=== PATIENT | male | born 1965 | race Caucasian/White ===

== ENCOUNTER 2023-08-05 19:59 | Inpatient (IN) ==
[2023-08-05] MEDS ORDERED: IOPAMIDOL 100 ML BOTTLE IV ONE (20:00)
[2023-08-05 20:39] LABS: Basophils # (Auto) 0.02 K/mcL (0.00-0.30); Basophils % (Auto) 0.1 % (0.0-2.0); Eosinophils # (Auto) 0 K/mcL (0.00-0.70); Eosinophils % (Auto) 0 % (0.0-7.0); Hemoglobin 8.2 g/dL (13.7-17.5); Lymphocytes # (Auto) 0.77 K/mcL (1.50-4.80); Mean Cell Volume 89.7 fL (80.0-100.0); Mean Corpuscular HGB Conc 31.5 g/dL (31.0-36.0); Monocytes # (Auto) 1.26 K/mcL (0.10-0.90); Monocytes % (Auto) 6.5 % (1.0-12.0); Neutrophils % (Auto) 88.3 % (38.0-78.0); Platelet Count 293 K/mcL (140-440); Red Cell Distribution Width 17.2 % (11.5-14.5); WBC 19.5 K/mcL (4.5-11.0)
[2023-08-05] MEDS: fentaNYL 100 MCG/2 ML VIAL IV ONE (20:56)
[2023-08-05 21:01] LABS: ALT/SGPT 38 U/L (<40); AST/SGOT 188 U/L (<40); Albumin/Globulin Ratio 0.8 (1.0-2.3); Alkaline Phosphatase 386 U/L (39-117); Bilirubin,Total 0.8 mg/dL (0.1-1.0); Blood Urea Nitrogen 58 mg/dL (6-20); Calcium 9.2 mg/dL (8.6-10.4); Carbon Dioxide 25 mmol/L (22-30); Chloride 92 mmol/L (96-108); Glomerular Filtration Rate 43; Glucose 110 mg/dL (70-105)
[2023-08-05] MEDS: cefTRIAXone 2 GM in DEXTROSE 5% IN WATER 50 ML IV ONE (22:53)
[2023-08-05 23:09] LABS: Appearance,Urine Clear (Clear); Bilirubin,Urine Negative (Negative); Color,Urine Yellow; Culture Indicated,Urine No; Glucose,Urine (UA) Negative (Negative); Ketones,Urine Negative (Negative); Leukocyte Esterase,Urine Negative /uL (Negative); Mucus,Urine Mod /hpf; Nitrate,Urine Negative (Negative); PH,Urine 5.5 (5.0-9.0); Protein,Urine Negative (Negative); Specific Gravity,Urine 1.015 (1.000-1.035); Urine Blood Negative ery/mcL (Negative); Urine Hyaline Cast 7 /lph (0-2); Urine RBC 0 /hpf (0-3); Urine Squamous Epithelial Cell 0 /hpf (0-4); Urine WBC 1 /hpf (0-4); Urobilinogen,Urine Normal
[2023-08-05] MEDS: AZITHROMYCIN 500 MG in DEXTROSE 5% IN WATER 250 ML IV ONE (23:30)
[2023-08-06] MEDS ORDERED: ONDANSETRON 4 MG/2 ML VIAL IV PRN ×2 (00:16→07:51)
[2023-08-06] MEDS: cefTRIAXone 1 GM VIAL IV SCH ×2 (01:03→15:01)
[2023-08-06] MEDS: 0.9 % SODIUM CHLORIDE 1,000 ML IV SCH (01:09)
[2023-08-06] MEDS: IPRATROPIUM/ALBUTEROL 3 ML AMPUL.NEB NEB PRN (01:32)
[2023-08-06] MEDS: IPRATROPIUM/ALBUTEROL 3 ML AMPUL.NEB NEB ONE (01:32)
[2023-08-06] MEDS: AZITHROMYCIN 500 MG in DEXTROSE 5% IN WATER 250 ML IV SCH ×2 (01:45→14:18)
[2023-08-06] MEDS: LORazepam 1 MG TABLET PO PRN (02:09)
[2023-08-06] MEDS: LORazepam 1 MG TABLET ONE (02:09)
[2023-08-06 04:41] LABS: POC Calcium, Ionized 1.17 (1.16-1.32); POC Creatinine 2.2 (0.6-1.2); POC Potassium 5.4 (3.3-5.1)
[2023-08-06 04:51] LABS: Basophils # (Auto) 0.04 K/mcL (0.00-0.30); Basophils % (Auto) 0.2 % (0.0-2.0); Eosinophils # (Auto) 0 K/mcL (0.00-0.70); Eosinophils % (Auto) 0 % (0.0-7.0); Hematocrit 27.6 % (40.1-51.0); Hemoglobin 8.5 g/dL (13.7-17.5); Lymphocytes # (Auto) 1.46 K/mcL (1.50-4.80); Lymphocytes % (Auto) 5.8 % (15.5-49.0); Mean Cell Volume 93.6 fL (80.0-100.0); Mean Corpuscular HGB Conc 30.8 g/dL (31.0-36.0); Mean Platelet Volume 10.2 fL (8.8-12.5); Monocytes # (Auto) 2.05 K/mcL (0.10-0.90); Monocytes % (Auto) 8.2 % (1.0-12.0); Neutrophils % (Auto) 83.3 % (38.0-78.0); Platelet Count 315 K/mcL (140-440); RBC 2.95 M/mcL (4.63-6.08); Red Cell Distribution Width 17.1 % (11.5-14.5); WBC 25.1 K/mcL (4.5-11.0)
[2023-08-06 05:12] LABS: ALT/SGPT 39 U/L (<40); AST/SGOT 189 U/L (<40); Albumin 2.9 gm/dL (3.2-5.2); Albumin/Globulin Ratio 0.7 (1.0-2.3); Alkaline Phosphatase 380 U/L (39-117); Bilirubin,Total 0.6 mg/dL (0.1-1.0); Blood Urea Nitrogen 63 mg/dL (6-20); Calcium 9.2 mg/dL (8.6-10.4); Carbon Dioxide 24 mmol/L (22-30); Chloride 93 mmol/L (96-108); Globulin 4.1 gm/dL (2.2-3.7); Glomerular Filtration Rate 38; Glucose 145 mg/dL (70-105)
[2023-08-06 05:32] LABS: Amphetamine Screen,Urine None detected; Barbiturate Screen,Urine None detected; Benzodiazepines Screen,Urine None detected; Cannabinoid Screen,Urine Suspect Positive; Cocaine Screen,Urine None detected; Opiate Screen,Urine None detected; Oxycodone, Urine Screen None detected; Phencyclidine Screen,Urine None detected
[2023-08-06] MEDS ORDERED: SENNOSIDES 1 TABLET PO PRN (07:51)
[2023-08-06] MEDS: HALOPERIDOL LACTATE 5 MG/ML VIAL IV PRN (08:39)
[2023-08-06] MEDS: HALOPERIDOL LACTATE 5 MG/ML VIAL ONE (08:42)
[2023-08-06] MEDS ORDERED: DOCUSATE SODIUM 100 MG CAPSULE PO SCH (09:00)
[2023-08-06] MEDS: 0.9 % SODIUM CHLORIDE 10 ML SYRINGE IV SCH ×2 (09:08→14:30)
[2023-08-06] MEDS: FUROSEMIDE 40 MG/4 ML VIAL IV SCH ×2 (10:30→15:01)
[2023-08-06] MEDS: APIXABAN 5 MG TABLET PO SCH (11:19)
[2023-08-06] MEDS: DILTIAZEM 240 MG CAP.XL.24H PO SCH (11:19)
[2023-08-06] MEDS: GABAPENTIN 300 MG CAPSULE PO SCH (11:19)
[2023-08-06] MEDS: CHLORTHALIDONE 25 MG TABLET PO SCH (11:22)
[2023-08-06] MEDS: DOCUSATE SODIUM 100 MG CAPSULE PO SCH (11:22)
[2023-08-06] MEDS: ALBUMIN HUMAN 12.5 GM/50 ML VIAL IV SCH (14:18)
[2023-08-06] MEDS ORDERED: NALOXONE 2 MG/2 ML SYRINGE IV ONE (15:37)
[2023-08-06] MEDS ORDERED: FLUMAZENIL 0.1 MG/ML ML IV ONE (15:37)
[2023-08-06] MEDS: LORazepam 2 MG/ML VIAL IV PRN (22:50)
[2023-08-06] MEDS: SENNOSIDES 1 TABLET PO SCH (22:52)
[2023-08-06] MEDS: ATORVASTATIN 40 MG TABLET PO SCH (22:52)
[2023-08-07] MEDS: DEXMEDETOMIDINE 400 MCG in PREMIX 1 BAG IV SCH (00:24)
[2023-08-07] MEDS: DEXMEDETOMIDINE 100 ML IV ONE (00:42)
[2023-08-07 06:24] LABS: Hematocrit 24.3 % (40.1-51.0); Hemoglobin 7.4 g/dL (13.7-17.5); Mean Corpuscular HGB Conc 30.5 g/dL (31.0-36.0); Platelet Count 243 K/mcL (140-440); RBC 2.53 M/mcL (4.63-6.08); Red Cell Distribution Width 17.4 % (11.5-14.5); WBC 16.5 K/mcL (4.5-11.0)
[2023-08-07 06:30] LABS: ALT/SGPT 35 U/L (<40); AST/SGOT 184 U/L (<40); Albumin 2.8 gm/dL (3.2-5.2); Albumin/Globulin Ratio 0.8 (1.0-2.3); Alkaline Phosphatase 334 U/L (39-117); Bilirubin,Direct 0.3 mg/dL (<0.3); Bilirubin,Total 0.5 mg/dL (0.1-1.0); Blood Urea Nitrogen 78 mg/dL (6-20); Calcium 8.7 mg/dL (8.6-10.4); Carbon Dioxide 27 mmol/L (22-30); Chloride 97 mmol/L (96-108); Globulin 3.3 gm/dL (2.2-3.7); Glomerular Filtration Rate 35; Glucose 94 mg/dL (70-105); Lactate Dehydrogenase 439 U/L (135-225); Triglycerides 123 mg/dL (<150); Uric Acid 12.6 mg/dL (2.5-8.0)
[2023-08-07 06:38] LABS: Anisocytosis 1+ (None Seen); Hypochromasia 1+ (None Seen); Lymphocytes % 4 % (15-49); Platelet Estimate NORMAL (Normal); RBC Morphology ABNORMAL (Normal); Reactive Lymphocytes 1 % (0-2); Segmented Neutrophils % 95 % (38-78)
[2023-08-07 08:37] LABS: ABG Methemoglobin 0.2 % (0.4-1.5); Total Hemoglobin 8.1 gm/Dl (13.5-16.5); VBG Base Excess -3 (-2-3); VBG HCO3 24.9 mmol/L (24.0-28.0); VBG Oxygen Saturation 75.3 % (40.0-70.0); VBG PCO2 59.2 mmHg (41.0-51.0); VBG PH 7.24 U (7.32-7.42); VBG PO2 50.2 mmHg (25.0-40.0); VBG Total CO2 26.7 mmol/L (25.0-29.0)
[2023-08-07] MEDS: PANTOPRAZOLE 40 MG VIAL IV SCH (09:08)
[2023-08-07] MEDS: SEVELAMER 800 MG TABLET PO SCH (09:09)
[2023-08-07] MEDS: 0.9 % SODIUM CHLORIDE 500 ML IV SCH (09:10)
[2023-08-07] MEDS: BUDESONIDE 0.5 MG/2 ML AMPUL.NEB NEB SCH (09:13)
[2023-08-07] MEDS: methylPREDNISolone SOD SUCC 125 MG/2 ML VIAL IV SCH (11:11)
[2023-08-07] MEDS: NICOTINE 14 MG PATCH TOPICAL SCH (11:58)
[2023-08-07] MEDS: NICOTINE 21 MG PATCH TOPICAL SCH (11:58)
[2023-08-07] MEDS: IPRATROPIUM/ALBUTEROL 3 ML AMPUL.NEB NEB SCH (12:25)
[2023-08-07] MEDS: QUEtiapine 25 MG TABLET PO SCH (20:18)
[2023-08-07] MEDS: methylPREDNISolone SOD SUCC 40 MG/ML VIAL IV ONE (20:18)
[2023-08-07] MEDS: methylPREDNISolone SOD SUCC 40 MG/ML VIAL IV SCH (20:19)
[2023-08-08 06:27] LABS: ALT/SGPT 44 U/L (<40); AST/SGOT 246 U/L (<40); Albumin 2.9 gm/dL (3.2-5.2); Albumin/Globulin Ratio 0.9 (1.0-2.3); Alkaline Phosphatase 399 U/L (39-117); Bilirubin,Direct 0.3 mg/dL (<0.3); Bilirubin,Total 0.4 mg/dL (0.1-1.0); Blood Urea Nitrogen 82 mg/dL (6-20); Calcium 8.5 mg/dL (8.6-10.4); Carbon Dioxide 27 mmol/L (22-30); Chloride 97 mmol/L (96-108); Globulin 3.3 gm/dL (2.2-3.7); Glomerular Filtration Rate 35; Glucose 152 mg/dL (70-105); Lactate Dehydrogenase 659 U/L (135-225); Phosphorous 5.3 mg/dL (2.5-4.5); Triglycerides 88 mg/dL (<150); Uric Acid 12.5 mg/dL (2.5-8.0)
[2023-08-08 07:59] LABS: Basophils # (Auto) 0.01 K/mcL (0.00-0.30); Basophils % (Auto) 0.1 % (0.0-2.0); Eosinophils # (Auto) 0 K/mcL (0.00-0.70); Eosinophils % (Auto) 0 % (0.0-7.0); Hematocrit 22.5 % (40.1-51.0); Lymphocytes # (Auto) 0.34 K/mcL (1.50-4.80); Lymphocytes % (Auto) 3.4 % (15.5-49.0); Mean Cell Volume 89.3 fL (80.0-100.0); Mean Corpuscular HGB Conc 31.1 g/dL (31.0-36.0); Mean Platelet Volume 9.9 fL (8.8-12.5); Monocytes # (Auto) 0.18 K/mcL (0.10-0.90); Monocytes % (Auto) 1.8 % (1.0-12.0); Neutrophils % (Auto) 93.3 % (38.0-78.0); Platelet Count 223 K/mcL (140-440); RBC 2.52 M/mcL (4.63-6.08); Red Cell Distribution Width 17.8 % (11.5-14.5); WBC 9.9 K/mcL (4.5-11.0)
[2023-08-08] MEDS: 0.9 % SODIUM CHLORIDE 500 ML IV SCH (08:44)
[2023-08-08] MEDS: SEVELAMER 800 MG TABLET PO SCH (08:48)
[2023-08-08] MEDS: 0.9 % SODIUM CHLORIDE 1,000 ML IV SCH (09:10)
[2023-08-08] MEDS: 0.9 % SODIUM CHLORIDE 250 ML IV SCH (10:40)
[2023-08-08 11:15] LABS: Hepatitis A Antibody IgM Non-Reactive (Non-Reactive); Hepatitis B Surface Antigen Negative (Negative)
[2023-08-09] MEDS: ACETAMINOPHEN 325 MG TABLET PO PRN (02:43)
[2023-08-09 06:13] LABS: ALT/SGPT 45 U/L (<40); AST/SGOT 261 U/L (<40); Albumin 3.1 gm/dL (3.2-5.2); Albumin/Globulin Ratio 0.9 (1.0-2.3); Alkaline Phosphatase 410 U/L (39-117); Bilirubin,Direct 0.3 mg/dL (<0.3); Bilirubin,Total 0.5 mg/dL (0.1-1.0); Blood Urea Nitrogen 76 mg/dL (6-20); Calcium 8.7 mg/dL (8.6-10.4); Carbon Dioxide 28 mmol/L (22-30); Chloride 98 mmol/L (96-108); Globulin 3.3 gm/dL (2.2-3.7); Glomerular Filtration Rate 40; Glucose 167 mg/dL (70-105); Lactate Dehydrogenase 769 U/L (135-225); Phosphorous 4.1 mg/dL (2.5-4.5); Triglycerides 76 mg/dL (<150); Uric Acid 10.7 mg/dL (2.5-8.0)
[2023-08-09 07:56] LABS: Basophils # (Auto) 0.01 K/mcL (0.00-0.30); Basophils % (Auto) 0.1 % (0.0-2.0); Eosinophils # (Auto) 0 K/mcL (0.00-0.70); Eosinophils % (Auto) 0 % (0.0-7.0); Hematocrit 26.8 % (40.1-51.0); Hemoglobin 8.2 g/dL (13.7-17.5); Lymphocytes # (Auto) 0.25 K/mcL (1.50-4.80); Mean Cell Volume 89.6 fL (80.0-100.0); Mean Corpuscular HGB Conc 30.6 g/dL (31.0-36.0); Mean Platelet Volume 10.1 fL (8.8-12.5); Monocytes # (Auto) 0.57 K/mcL (0.10-0.90); Monocytes % (Auto) 4.6 % (1.0-12.0); Neutrophils % (Auto) 92.3 % (38.0-78.0); Platelet Count 201 K/mcL (140-440); RBC 2.99 M/mcL (4.63-6.08); Red Cell Distribution Width 18.4 % (11.5-14.5); WBC 12.5 K/mcL (4.5-11.0)
[2023-08-09] MEDS: PANTOPRAZOLE 80 MG in 0.9 % SODIUM CHLORIDE 100 ML IV SCH (09:09)
[2023-08-09] MEDS: 0.9 % SODIUM CHLORIDE 250 ML IV SCH (09:10)
[2023-08-09] MEDS: guaiFENesin 600 MG TAB.SR.12H PO SCH (09:27)
[2023-08-09] MEDS ORDERED: KETAMINE 50 MG/ML ML IV PRN (12:40)
[2023-08-09] MEDS ORDERED: PROPOFOL 200 MG/20 ML VIAL IV SCH (12:45)
[2023-08-09] MEDS: MIDAZOLAM 2 MG/2 ML VIAL IV SCH (13:21)
[2023-08-09] MEDS: predniSONE 20 MG TABLET PO SCH (16:56)
[2023-08-09] MEDS: traMADol 50 MG TABLET PO PRN (21:19)
[2023-08-09] MEDS: 0.9 % SODIUM CHLORIDE 10 ML SYRINGE IV SCH (21:23)
[2023-08-10 07:05] LABS: Basophils # (Auto) 0.01 K/mcL (0.00-0.30); Basophils % (Auto) 0.1 % (0.0-2.0); Eosinophils # (Auto) 0 K/mcL (0.00-0.70); Eosinophils % (Auto) 0 % (0.0-7.0); Hematocrit 26.8 % (40.1-51.0); Hemoglobin 8.2 g/dL (13.7-17.5); Lymphocytes # (Auto) 0.24 K/mcL (1.50-4.80); Lymphocytes % (Auto) 2.2 % (15.5-49.0); Mean Cell Volume 92.1 fL (80.0-100.0); Mean Corpuscular HGB Conc 30.6 g/dL (31.0-36.0); Mean Platelet Volume 9.9 fL (8.8-12.5); Monocytes # (Auto) 0.43 K/mcL (0.10-0.90); Monocytes % (Auto) 3.9 % (1.0-12.0); Neutrophils % (Auto) 93.2 % (38.0-78.0); Platelet Count 178 K/mcL (140-440); RBC 2.91 M/mcL (4.63-6.08); Red Cell Distribution Width 18.1 % (11.5-14.5); WBC 11.1 K/mcL (4.5-11.0)
[2023-08-10 07:44] LABS: ALT/SGPT 39 U/L (<40); AST/SGOT 172 U/L (<40); Albumin 2.9 gm/dL (3.2-5.2); Albumin/Globulin Ratio 0.9 (1.0-2.3); Alkaline Phosphatase 356 U/L (39-117); Bilirubin,Direct 0.3 mg/dL (<0.3); Bilirubin,Total 0.5 mg/dL (0.1-1.0); Blood Urea Nitrogen 71 mg/dL (6-20); Calcium 8.8 mg/dL (8.6-10.4); Carbon Dioxide 28 mmol/L (22-30); Chloride 103 mmol/L (96-108); Globulin 3.1 gm/dL (2.2-3.7); Glomerular Filtration Rate 46; Glucose 145 mg/dL (70-105); Lactate Dehydrogenase 554 U/L (135-225); Phosphorous 3.4 mg/dL (2.5-4.5); Triglycerides 71 mg/dL (<150); Uric Acid 9.4 mg/dL (2.5-8.0)
[2023-08-10] MEDS ORDERED: KETAMINE 50 MG/ML ML IV PRN (08:04)
[2023-08-10] MEDS: MIDAZOLAM 2 MG/2 ML VIAL IV SCH (09:41)
[2023-08-10] MEDS: PROPOFOL 200 MG/20 ML VIAL IV SCH (09:41)
[2023-08-10] MEDS: predniSONE 20 MG TABLET PO SCH (11:16)
[2023-08-11 06:45] LABS: Basophils # (Auto) 0.01 K/mcL (0.00-0.30); Basophils % (Auto) 0.1 % (0.0-2.0); Eosinophils # (Auto) 0 K/mcL (0.00-0.70); Eosinophils % (Auto) 0 % (0.0-7.0); Hematocrit 27.4 % (40.1-51.0); Hemoglobin 8.4 g/dL (13.7-17.5); Mean Cell Volume 93.2 fL (80.0-100.0); Mean Corpuscular HGB Conc 30.7 g/dL (31.0-36.0); Monocytes # (Auto) 0.94 K/mcL (0.10-0.90); Monocytes % (Auto) 7.1 % (1.0-12.0); Neutrophils % (Auto) 89.1 % (38.0-78.0); Platelet Count 193 K/mcL (140-440); RBC 2.94 M/mcL (4.63-6.08); Red Cell Distribution Width 18.3 % (11.5-14.5); WBC 13.3 K/mcL (4.5-11.0)
[2023-08-11 06:54] LABS: ALT/SGPT 45 U/L (<40); AST/SGOT 144 U/L (<40); Albumin/Globulin Ratio 1.1 (1.0-2.3); Alkaline Phosphatase 362 U/L (39-117); Bilirubin,Total 0.5 mg/dL (0.1-1.0); Blood Urea Nitrogen 69 mg/dL (6-20); Calcium 8.7 mg/dL (8.6-10.4); Carbon Dioxide 28 mmol/L (22-30); Chloride 103 mmol/L (96-108); Globulin 2.8 gm/dL (2.2-3.7); Glomerular Filtration Rate 46; Glucose 129 mg/dL (70-105)
[2023-08-11] MEDS: PERMETHRIN 1% TOPICAL ONE (13:38)
[2023-08-11] MEDS: traZODone HCL 50 MG TABLET PO PRN (21:14)
[2023-08-11] MEDS: guaiFENesin/DEXTROMETHORPHAN 5ML UD CUP PO PRN (22:59)
[2023-08-12 06:04] LABS: Basophils # (Auto) 0.01 K/mcL (0.00-0.30); Basophils % (Auto) 0.1 % (0.0-2.0); Eosinophils # (Auto) 0 K/mcL (0.00-0.70); Eosinophils % (Auto) 0 % (0.0-7.0); Hematocrit 29.6 % (40.1-51.0); Hemoglobin 8.9 g/dL (13.7-17.5); Mean Cell Volume 93.1 fL (80.0-100.0); Mean Corpuscular HGB Conc 30.1 g/dL (31.0-36.0); Mean Platelet Volume 10.3 fL (8.8-12.5); Monocytes # (Auto) 0.83 K/mcL (0.10-0.90); Monocytes % (Auto) 5.6 % (1.0-12.0); Neutrophils % (Auto) 91.6 % (38.0-78.0); Platelet Count 204 K/mcL (140-440); RBC 3.18 M/mcL (4.63-6.08); Red Cell Distribution Width 18.1 % (11.5-14.5); WBC 14.7 K/mcL (4.5-11.0)
[2023-08-12 06:16] LABS: ALT/SGPT 73 U/L (<40); AST/SGOT 151 U/L (<40); Albumin 3.1 gm/dL (3.2-5.2); Albumin/Globulin Ratio 1.1 (1.0-2.3); Alkaline Phosphatase 404 U/L (39-117); Bilirubin,Total 0.5 mg/dL (0.1-1.0); Blood Urea Nitrogen 61 mg/dL (6-20); Calcium 8.8 mg/dL (8.6-10.4); Carbon Dioxide 28 mmol/L (22-30); Chloride 105 mmol/L (96-108); Globulin 2.9 gm/dL (2.2-3.7); Glomerular Filtration Rate 50; Glucose 138 mg/dL (70-105)
[2023-08-12] MEDS: PANTOPRAZOLE 40 MG PACKET PO SCH (08:45)
[2023-08-12] MEDS: HALOPERIDOL LACTATE 5 MG/ML VIAL IV PRN (20:52)
[2023-08-13 06:18] LABS: Basophils # (Auto) 0 K/mcL (0.00-0.30); Basophils % (Auto) 0 % (0.0-2.0); Eosinophils # (Auto) 0 K/mcL (0.00-0.70); Eosinophils % (Auto) 0 % (0.0-7.0); Hematocrit 29.1 % (40.1-51.0); Hemoglobin 8.8 g/dL (13.7-17.5); Lymphocytes # (Auto) 0.44 K/mcL (1.50-4.80); Lymphocytes % (Auto) 3.2 % (15.5-49.0); Mean Cell Volume 94.2 fL (80.0-100.0); Mean Corpuscular HGB Conc 30.2 g/dL (31.0-36.0); Mean Platelet Volume 10.7 fL (8.8-12.5); Monocytes # (Auto) 0.98 K/mcL (0.10-0.90); Monocytes % (Auto) 7.1 % (1.0-12.0); Neutrophils % (Auto) 88.8 % (38.0-78.0); Platelet Count 194 K/mcL (140-440); RBC 3.09 M/mcL (4.63-6.08); WBC 13.7 K/mcL (4.5-11.0)
[2023-08-13 06:27] LABS: ALT/SGPT 67 U/L (<40); AST/SGOT 113 U/L (<40); Albumin/Globulin Ratio 1.1 (1.0-2.3); Alkaline Phosphatase 375 U/L (39-117); Bilirubin,Total 0.4 mg/dL (0.1-1.0); Blood Urea Nitrogen 49 mg/dL (6-20); Calcium 8.7 mg/dL (8.6-10.4); Carbon Dioxide 31 mmol/L (22-30); Chloride 103 mmol/L (96-108); Globulin 2.8 gm/dL (2.2-3.7); Glomerular Filtration Rate 59; Glucose 211 mg/dL (70-105)
[2023-08-13] MEDS: HYDROcodone/APAP 10/325MG TABLET PO PRN (19:53)
[2023-08-13] MEDS: HYDROcodone/APAP 10/325MG TABLET PO ONE (20:56)
[2023-08-14 06:32] LABS: ALT/SGPT 71 U/L (<40); AST/SGOT 109 U/L (<40); Albumin 3.2 gm/dL (3.2-5.2); Albumin/Globulin Ratio 1.1 (1.0-2.3); Alkaline Phosphatase 412 U/L (39-117); Bilirubin,Total 0.6 mg/dL (0.1-1.0); Blood Urea Nitrogen 43 mg/dL (6-20); Carbon Dioxide 29 mmol/L (22-30); Chloride 102 mmol/L (96-108); Glomerular Filtration Rate 59; Glucose 155 mg/dL (70-105)
[2023-08-14 06:44] LABS: Basophils # (Auto) 0.01 K/mcL (0.00-0.30); Basophils % (Auto) 0.1 % (0.0-2.0); Eosinophils # (Auto) 0 K/mcL (0.00-0.70); Eosinophils % (Auto) 0 % (0.0-7.0); Hematocrit 30.1 % (40.1-51.0); Lymphocytes # (Auto) 0.44 K/mcL (1.50-4.80); Lymphocytes % (Auto) 2.4 % (15.5-49.0); Mean Cell Volume 94.1 fL (80.0-100.0); Mean Corpuscular HGB Conc 29.9 g/dL (31.0-36.0); Mean Platelet Volume 10.6 fL (8.8-12.5); Monocytes % (Auto) 7.5 % (1.0-12.0); Neutrophils % (Auto) 89.3 % (38.0-78.0); Platelet Count 238 K/mcL (140-440); WBC 18.7 K/mcL (4.5-11.0)
[2023-08-14] MEDS: FUROSEMIDE 20 MG TABLET PO SCH (15:27)
[2023-08-14] MEDS: HYDROcodone/APAP 10/325MG TABLET PO PRN (18:22)
[2023-08-14] MEDS: OLANZapine 5 MG TABLET PO PRN (21:18)
[2023-08-15] MEDS: HEPARIN SODIUM,PORCINE/PF 500 UNIT/5 ML SYRINGE IV ONE (06:33)
[2023-08-15 06:45] LABS: Basophils # (Auto) 0.01 K/mcL (0.00-0.30); Basophils % (Auto) 0.1 % (0.0-2.0); Eosinophils # (Auto) 0 K/mcL (0.00-0.70); Eosinophils % (Auto) 0 % (0.0-7.0); Hematocrit 29.1 % (40.1-51.0); Hemoglobin 8.6 g/dL (13.7-17.5); Lymphocytes # (Auto) 0.39 K/mcL (1.50-4.80); Mean Cell Volume 94.5 fL (80.0-100.0); Mean Corpuscular HGB Conc 29.6 g/dL (31.0-36.0); Mean Platelet Volume 10.3 fL (8.8-12.5); Monocytes # (Auto) 1.13 K/mcL (0.10-0.90); Monocytes % (Auto) 8.7 % (1.0-12.0); Neutrophils % (Auto) 87.3 % (38.0-78.0); Platelet Count 202 K/mcL (140-440); RBC 3.08 M/mcL (4.63-6.08); Red Cell Distribution Width 17.8 % (11.5-14.5); WBC 12.9 K/mcL (4.5-11.0)
[2023-08-15 07:25] LABS: ALT/SGPT 88 U/L (<40); AST/SGOT 121 U/L (<40); Albumin 3.1 gm/dL (3.2-5.2); Albumin/Globulin Ratio 1.1 (1.0-2.3); Alkaline Phosphatase 466 U/L (39-117); Bilirubin,Total 0.5 mg/dL (0.1-1.0); Blood Urea Nitrogen 43 mg/dL (6-20); Calcium 8.9 mg/dL (8.6-10.4); Carbon Dioxide 32 mmol/L (22-30); Chloride 102 mmol/L (96-108); Globulin 2.8 gm/dL (2.2-3.7); Glomerular Filtration Rate 65; Glucose 137 mg/dL (70-105)
[2023-08-15] MEDS: LACTULOSE 20 GM/30 ML ORAL.SOL PO PRN (09:28)
[2023-08-15] MEDS: FUROSEMIDE 20 MG TABLET PO SCH (13:47)
[2023-08-15] MEDS ORDERED: methylPREDNISolone SOD SUCC 125 MG/2 ML VIAL IV SCH (14:00)
[2023-08-15] MEDS: methylPREDNISolone SOD SUCC 40 MG/ML VIAL IV SCH (14:48)
[2023-08-16 08:41] LABS: ALT/SGPT 128 U/L (<40); AST/SGOT 136 U/L (<40); Albumin 3.1 gm/dL (3.2-5.2); Albumin/Globulin Ratio 1.1 (1.0-2.3); Alkaline Phosphatase 607 U/L (39-117); Bilirubin,Direct 0.3 mg/dL (<0.3); Bilirubin,Total 0.4 mg/dL (0.1-1.0); Blood Urea Nitrogen 44 mg/dL (6-20); Calcium 8.9 mg/dL (8.6-10.4); Carbon Dioxide 33 mmol/L (22-30); Chloride 100 mmol/L (96-108); Globulin 2.7 gm/dL (2.2-3.7); Glomerular Filtration Rate 59; Glucose 149 mg/dL (70-105); Lactate Dehydrogenase 369 U/L (135-225); Phosphorous 3.4 mg/dL (2.5-4.5); Triglycerides 61 mg/dL (<150); Uric Acid 7.2 mg/dL (2.5-8.0)
[2023-08-16] MEDS: FUROSEMIDE 40 MG TABLET PO SCH (08:53)
[2023-08-16] MEDS: APIXABAN 2.5 MG TABLET PO SCH (08:53)
[2023-08-17 06:10] LABS: Basophils # (Auto) 0.01 K/mcL (0.00-0.30); Basophils % (Auto) 0.1 % (0.0-2.0); Eosinophils # (Auto) 0 K/mcL (0.00-0.70); Eosinophils % (Auto) 0 % (0.0-7.0); Hematocrit 30.8 % (40.1-51.0); Hemoglobin 9.2 g/dL (13.7-17.5); Lymphocytes # (Auto) 0.45 K/mcL (1.50-4.80); Mean Cell Volume 93.1 fL (80.0-100.0); Mean Corpuscular HGB Conc 29.9 g/dL (31.0-36.0); Mean Platelet Volume 10.7 fL (8.8-12.5); Monocytes # (Auto) 1.45 K/mcL (0.10-0.90); Monocytes % (Auto) 9.5 % (1.0-12.0); Neutrophils % (Auto) 86.9 % (38.0-78.0); Platelet Count 258 K/mcL (140-440); RBC 3.31 M/mcL (4.63-6.08); Red Cell Distribution Width 18.1 % (11.5-14.5); WBC 15.2 K/mcL (4.5-11.0)
[2023-08-17 06:18] LABS: ALT/SGPT 120 U/L (<40); AST/SGOT 127 U/L (<40); Albumin 3.4 gm/dL (3.2-5.2); Albumin/Globulin Ratio 1.3 (1.0-2.3); Alkaline Phosphatase 602 U/L (39-117); Bilirubin,Direct 0.3 mg/dL (<0.3); Bilirubin,Total 0.5 mg/dL (0.1-1.0); Blood Urea Nitrogen 42 mg/dL (6-20); Calcium 8.9 mg/dL (8.6-10.4); Carbon Dioxide 33 mmol/L (22-30); Chloride 96 mmol/L (96-108); Globulin 2.7 gm/dL (2.2-3.7); Glomerular Filtration Rate 54; Glucose 236 mg/dL (70-105); Lactate Dehydrogenase 490 U/L (135-225); Phosphorous 2.4 mg/dL (2.5-4.5); Triglycerides 61 mg/dL (<150); Uric Acid 7.1 mg/dL (2.5-8.0)
[2023-08-17] MEDS: predniSONE 20 MG TABLET PO SCH (07:53)
[2023-08-17] MEDS: ALBUMIN HUMAN 12.5 GM/50 ML VIAL IV ONE (09:07)
[2023-08-17 09:17] LABS: Band Neutrophils % 2 % (0-10); Lymphocytes % 3 % (15-49); Monocytes % (Manual) 6 % (1-12); Platelet Estimate NORMAL (Normal); RBC Morphology NORMAL (Normal); Reactive Lymphocytes 1 % (0-2); Segmented Neutrophils % 88 % (38-78)
[2023-08-17 09:57] LABS: Total Protein,Peritoneal Fluid 0.4 gm/dL
[2023-08-17 11:58] LABS: Mesothelial,Peritoneal Fluid 31 %; Monocyte,Peritoneal Fluid 20 %; Neutrophils,Peritoneal Fluid 44 %; Nucleated Cel,Peritoneal Fluid 109 /cumm; RBC,Peritoneal Fluid <50,000 /cumm
[2023-08-17] MEDS: APIXABAN 2.5 MG TABLET PO SCH (20:27)
[2023-08-18 05:35] LABS: Basophils # (Auto) 0 K/mcL (0.00-0.30); Basophils % (Auto) 0 % (0.0-2.0); Eosinophils # (Auto) 0.02 K/mcL (0.00-0.70); Eosinophils % (Auto) 0.1 % (0.0-7.0); Hematocrit 27.7 % (40.1-51.0); Hemoglobin 8.4 g/dL (13.7-17.5); Lymphocytes % (Auto) 4.2 % (15.5-49.0); Mean Corpuscular HGB Conc 30.3 g/dL (31.0-36.0); Mean Platelet Volume 10.3 fL (8.8-12.5); Monocytes # (Auto) 1.81 K/mcL (0.10-0.90); Monocytes % (Auto) 12.8 % (1.0-12.0); Neutrophils % (Auto) 82.1 % (38.0-78.0); Platelet Count 203 K/mcL (140-440); RBC 3.01 M/mcL (4.63-6.08); Red Cell Distribution Width 18.1 % (11.5-14.5); WBC 14.2 K/mcL (4.5-11.0)
[2023-08-18 06:09] LABS: ALT/SGPT 120 U/L (<40); AST/SGOT 129 U/L (<40); Albumin 3.2 gm/dL (3.2-5.2); Albumin/Globulin Ratio 1.5 (1.0-2.3); Alkaline Phosphatase 546 U/L (39-117); Bilirubin,Direct 0.3 mg/dL (<0.3); Bilirubin,Total 0.4 mg/dL (0.1-1.0); Blood Urea Nitrogen 38 mg/dL (6-20); Calcium 8.4 mg/dL (8.6-10.4); Carbon Dioxide 34 mmol/L (22-30); Chloride 97 mmol/L (96-108); Globulin 2.2 gm/dL (2.2-3.7); Glomerular Filtration Rate 54; Glucose 160 mg/dL (70-105); Lactate Dehydrogenase 390 U/L (135-225); Phosphorous 1.8 mg/dL (2.5-4.5); Triglycerides 71 mg/dL (<150); Uric Acid 6.3 mg/dL (2.5-8.0)
[2023-08-18] MEDS: SPIRONOLACTONE 25 MG TABLET PO SCH (08:47)
[2023-08-18] MEDS: NEUTRA PHOS 1 PACKET PO SCH (08:47)
[2023-08-18] MEDS: FUROSEMIDE 40 MG TABLET PO SCH (08:48)
[2023-08-18] MEDS: predniSONE 20 MG TABLET PO SCH (08:48)
[2023-08-18] MEDS: MAGNESIUM SULFATE 2 GM/50 ML BAG IV ONE (08:49)
[2023-08-18] MEDS ORDERED: FUROSEMIDE 40 MG TABLET PO SCH (09:00)
[2023-08-18] MEDS: POTASSIUM PHOSPHATE 40 MEQ in DEXTROSE 5% IN WATER 500 ML IV ONE (10:25)
[2023-08-18] MEDS: HEPARIN SODIUM,PORCINE/PF 500 UNIT/5 ML SYRINGE IV ONE (13:51)
== END 2023-08-18 14:14 | DRG 871 ==
LOC: ED 19:59 → MEDSUR 19:59 → ICU 08-06 04:45
PROVIDERS: ADMIT Internal Medicine; ATTEND Internal Medicine